=== PATIENT | female | born 1995 ===

== ENCOUNTER → 2018-02-03 | Outpatient (CLI) | payer OTHER ==
--- NOTE | 2018-02-03 14:54 | DIAGNOSTIC IMAGING REPORT ---
LEFT KNEE 2 VIEWS CLINICAL HISTORY: Left knee pain. Injury. FINDINGS: AP and crosstable lateral views of left knee are obtained. No prior studies are available for comparison at the time of dictation. The skeletal structures are well mineralized. No fracture is seen. The joint spaces of the knee are well-maintained. There is no joint effusion. The overlying soft tissues are normal in appearance. IMPRESSION: No acute osseous abnormality is identified. Electronically signed by: Stevie Esparza M.D. 02/03/2018 2:52 PM Dictated Date/Time: 02/03/2018 2:52 PM
== END | disposition home or self-care (01) ==
LOC: C.RDSM 14:22
PROVIDERS: ATTEND Family Medicine
DX: M25.562 Pain in left knee (principal)